=== PATIENT | female | born 1985 | race Native Hawaiian/Other Pacific Islander ===

== ENCOUNTER 2018-09-08 14:40 | Emergency (ER) | payer OTHER ==
[~2018-09-08] VITALS: Ht 175.3 cm; Wt 131.1 kg
[2018-09-08 15:33] LABS: PLATELET COUNT 248 K/uL (152-353)
[2018-09-08 15:54] LABS: POTASSIUM 3.5 mmol/L (3.6-5.2); SODIUM 139 mmol/L (136-145)
[2018-09-08 17:22] VITALS: BP 118/68; TEMP 98.1
== END 2018-09-08 17:22 | disposition home or self-care (01) ==
LOC: ED 14:40
PROVIDERS: Student in an Organized Health Care Education/Training Program
DX: R42 Dizziness and giddiness (principal); R07.89 Other chest pain; F41.9 Anxiety disorder, unspecified; R00.1 Bradycardia, unspecified
CPT/HCPCS: 36415; 80048; 81025; 83735; 84484; 85027; 93005; 96374; 99284; J2060

== ENCOUNTER 2019-01-26 17:06 | Inpatient (IN) | payer OTHER ==
[~2019-01-26] VITALS: Ht 175.3 cm; Wt 122.5 kg
[2019-01-26 17:14] VITALS: BP 160/100; TEMP 98.2
[2019-01-26 18:04] LABS: PLATELET COUNT 231 K/uL (152-353)
[2019-01-26 18:35] LABS: SODIUM 138 mmol/L (136-145)
[2019-01-26 22:30] VITALS: BP 103/59; BP 92/67; TEMP 97.4
[2019-01-26 22:31] VITALS: BP 103/59; TEMP 97.4; Ht 175.3 cm; Wt 122.5 kg
[2019-01-26 23:00] VITALS: BP 106/55
[2019-01-27] VITALS (14 sets, daily range): BP systolic 12–128; BP diastolic 65–83; TEMP 98–98.8
[2019-01-27 08:26] LABS: PLATELET COUNT 203 K/uL (152-353)
[2019-01-27] MEDS ORDERED: SERT100T PO (08:40)
[2019-01-27] MEDS ORDERED: TRAMADOL HYDROC50 MG PO (08:41)
[2019-01-27] MEDS ORDERED: CLONAZEP ODT0.5 MG PO (08:44)
[2019-01-27 08:52] LABS: POTASSIUM 4.2 mmol/L (3.6-5.2); SODIUM 142 mmol/L (136-145)
[2019-01-28] VITALS (7 sets, daily range): BP systolic 105–126; BP diastolic 55–78; TEMP 98.1–98.6
== END 2019-01-28 13:20 | DRG 918 ==
LOC: ED 17:06 → ICU 19:25
PROVIDERS: Emergency Medicine; ADMIT Internal Medicine
DX: T42.4X2A Poisoning by benzodiazepines, intentional self-harm, initial encounter (principal); Y92.89 Other specified places as the place of occurrence of the external cause; F41.1 Generalized anxiety disorder; F32.89 Other specified depressive episodes
CPT/HCPCS: 36415; 80053; 80307; 80320; 80329; 81000; 81025; 82550; 83735; 84443; 84484; 85027; 93005; 96360; 99285; J3411; J3490

== ENCOUNTER 2019-07-27 14:24 | Emergency (ER) | payer OTHER ==
[~2019-07-27] VITALS: Ht 175.3 cm; Wt 138.3 kg
[~2019-07-27 14:24] MED LIST: CLONAZEP ODT0.5 MG PO; SERT100T PO; TRAMADOL HYDROC50 MG PO
[2019-07-27 15:52] LABS: PLATELET COUNT 189 K/uL (152-353)
[2019-07-27 16:08] LABS: POTASSIUM 3.8 mmol/L (3.6-5.2); SODIUM 142 mmol/L (136-145)
[2019-07-27 17:15] VITALS: BP 139/81; TEMP 98.5
== END 2019-07-27 17:25 | disposition home or self-care (01) ==
LOC: ED 14:24
PROVIDERS: Family Medicine
DX: G43.909 Migraine, unspecified, not intractable, without status migrainosus (principal)
CPT/HCPCS: 80053; 82150; 82553; 83605; 83690; 84484; 85027; 96360; 96375; 99284; J1885; J2405

== ENCOUNTER 2019-08-17 12:23 | Outpatient (CLI) | payer OTHER | END 2019-08-17 21:50 | disposition home or self-care (01) | LOC: LAB 12:23 | DX: U07.1 COVID-19 (principal) | CPT/HCPCS: 87635; G2023; U00003 ==

== ENCOUNTER 2020-02-04 02:21 | Emergency (ER) | payer OTHER ==
[~2020-02-04] VITALS: Ht 175.3 cm; Wt 113.4 kg
[2020-02-04 03:13] LABS: PLATELET COUNT 233 K/uL (152-353)
[2020-02-04 04:54] VITALS: BP 120/62; TEMP 98.2
== END 2020-02-04 04:54 | disposition home or self-care (01) ==
LOC: ED 02:21
PROVIDERS: Emergency Medicine Emergency Medical Services
DX: N13.2 Hydronephrosis with renal and ureteral calculous obstruction (principal)
CPT/HCPCS: 36415; 80048; 81000; 81025; 85027; 96360; 96375; 99284; J1170; J2405

== ENCOUNTER 2022-06-29 14:54 | Emergency (ER) | payer OTHER ==
[~2022-06-29] VITALS: Ht 180.3 cm; Wt 115.7 kg
[2022-06-29 18:05] VITALS: BP 130/77; TEMP 97.2
== END 2022-06-29 18:10 | disposition home or self-care (01) ==
LOC: ED 14:54
DX: L03.116 Cellulitis of left lower limb (principal); F17.210 Nicotine dependence, cigarettes, uncomplicated
CPT/HCPCS: 96372; 99283; J1885